=== PATIENT | female | born 1950 | race Caucasian/White ===

== ENCOUNTER → 2019-08-17 | Outpatient (CLI) | payer OTHER | END | disposition home or self-care (01) | LOC: TOM 08-07 09:15 | DX: R10.84 Generalized abdominal pain (principal); K63.5 Polyp of colon ==

== ENCOUNTER 2025-04-19 09:53 | Outpatient (CLI) | payer OTHER | END 2025-04-19 09:58 | disposition home or self-care (01) | LOC: TOM 09:53 | PROVIDERS: ATTEND Internal Medicine Gastroenterology | DX: K21.9 Gastro-esophageal reflux disease without esophagitis (principal); R10.13 Epigastric pain; R15.9 Full incontinence of feces; Z12.11 Encounter for screening for malignant neoplasm of colon ==